=== PATIENT | male | born 2000 | race Caucasian/White ===

== ENCOUNTER 2021-03-23 09:51 | Emergency (ER) | payer OTHER ==
[~2021-03-23] VITALS: Ht 172.7 cm; Wt 73.0 kg
[2021-03-23 11:03] LABS: HEMATOCRIT 42.1 % (42.0-52.0); HEMOGLOBIN 14.5 g/dl (13.5-17.5); MEAN CORPUSCULAR HEMOGLOBIN 29.7 pg (27.0-33.0); MEAN CORPUSCULAR HGB CONC 34.4 g/dl (32.0-36.5); MEAN CORPUSCULAR VOLUME 86.3 fl (80.0-96.0); PLATELET COUNT, AUTOMATED 198 10^3/uL (150-450); RED BLOOD COUNT 4.88 10^6/uL (4.30-6.10); WHITE BLOOD COUNT 5.5 10^3/uL (4.0-10.0)
[2021-03-23 11:19] LABS: ALBUMIN 3.9 GM/DL (3.2-5.2); ALT/SGPT 57 U/L (12-78); BILIRUBIN,TOTAL 0.4 MG/DL (0.2-1.0); BLOOD UREA NITROGEN 17 MG/DL (7-18); CALCIUM LEVEL 9.6 MG/DL (8.5-10.1); CARBON DIOXIDE LEVEL 32 MEQ/L (21-32); CHLORIDE LEVEL 102 MEQ/L (98-107); CREATININE FOR GFR 1.42 MG/DL (0.70-1.30); GLUCOSE, FASTING 93 MG/DL (70-100); LIPASE 78 U/L (73-393); POTASSIUM SERUM 4.3 MEQ/L (3.5-5.1); SODIUM LEVEL 138 MEQ/L (136-145); TOTAL PROTEIN 7.4 GM/DL (6.4-8.2)
[2021-03-23 11:39] LABS: ATYPICAL LYMPH 26 % (0-5); BASOPHILS 2 % (0-1); EOSINOPHILS 2 % (0-3); LYMPHOCYTES 23 % (16-44); MONOCYTES 1 % (0-5); NEUTROPHILS 43 % (28-66); PLATELET ESTIMATE NORMAL (NORMAL)
[2021-03-23 13:06] LABS: GC DNA AMPLIFICATION NEGATIVE (NEGATIVE)
--- NOTE | 2021-03-23 13:18 | REP ---
INDICATION: hematuria COMPARISON: None. TECHNIQUE: CT Scan of the abdomen and pelvis was performed without intravenous contrast. Sagittal and coronal reconstruction images performed. FINDINGS: Lung bases: Unremarkable. Liver: Grossly unremarkable. Gallbladder: Unremarkable. Spleen: Grossly unremarkable. Adrenals: Normal. Pancreas: Grossly unremarkable.. Kidneys: No hydronephrosis or nephrolithiasis. Ureters demonstrate no dilatation or calculus. Small and large bowel: Grossly unremarkable. Free fluid: None. Abdominal aorta: No aneurysm. Adenopathy: None. Appendix: Not inflamed. 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 Schmorl's nodes are present the inferior endplate of L 1 and superior endplate of L4. Pelvis: No mass. No bladder calculus seen. IMPRESSION: No acute pathology identified on this non-contrast CT abdomen and pelvis. 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 Are <Electronically signed by Khoi Tatum > 03/23/21 [id number]
[2021-03-23 13:33] LABS: MONO REFLEX EBV COMP POSITIVE (NEGATIVE)
[2021-03-23 13:52] VITALS: BP 121/70
[2021-03-23] MEDS ORDERED: CEPH500C PO (14:58)
== END 2021-03-23 15:20 | disposition home or self-care (01) ==
LOC: M ED 09:51
DX: N39.0 Urinary tract infection, site not specified (principal); B27.90 Infectious mononucleosis, unspecified without complication; R94.4 Abnormal results of kidney function studies
CPT/HCPCS: 36415; 74176; 80053; 81001; 82550; 83690; 85025; 86308; 87661; 99284; U0003

== ENCOUNTER → 2021-10-23 | Outpatient (REF) | payer OTHER ==
[~2021-10-23] MED LIST: CEPH500C PO
== END ==
LOC: M WUC 18:41
PROVIDERS: ATTEND Student in an Organized Health Care Education/Training Program
DX: J02.9 Acute pharyngitis, unspecified (principal)